=== PATIENT | male | born 1985 | race Caucasian/White ===

== ENCOUNTER → 2016-07-07 | Outpatient (CLI) | payer OTHER ==
[~2016-07-07] MED LIST: ACET50TAOT PO; IBUP600T26 PO; LIDO1OIN2 TOP; MELO15TA4 PO; NEUR300C PO; TIZA2CAP3 PO
--- NOTE | 2016-07-16 00:13 | ECWPNPC ---
PATIENT NAME: KARLY RODRIGUEZ : 1985 GENDER: MALE VISIT DATE: 07/07/2016 DISCHARGE DATE: 07/07/16 1120 VISIT LOCKED DATE TIME: PHYSICIAN: ANNE LAIRD PHYSICIAN PAGER NO: [phone] RESOURCE: ANNE LAIRD REASON FOR APPOINTMENT 1. LEFT LEG HISTORY OF PRESENT ILLNESS HISTORY OF PRESENT ILLNESS: PAIN THE PATIENT DESCRIBES THE PAIN... FALL RISK SCREENING: SCREENING :NO FALLS IN THE PAST YEAR TODAY'S VISIT: NOTES: HAS INTERMITTANT SHARP SHOOTING PAIN IN LEFT HIP WHILE WALKING/ TWISTING WHICH IS SO SEVERE IT CAN STOP HIM IN HIS TRACKS. CAN GO COMPLETELY AWAY AND THEN IT WILL RETURN. LEFT LEG CAN GO OUT AND HAS HAD A NEAR FALL. AFTER THIS EVENT HAS EXTREME SORE OVER THE HIP BONE. LEFT ANKLE IS GENERALLY BETTER -DOES WEAR ANKLE BRACE. NOTES HIP PAIN RADIATES INTO LEFT GROIN. LIMPS AT THE END OF THE DAY. 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 NEW PATIENT PAIN DIARY TODAY'S VISITNOTES FROM 0-10, WHAT LEVEL IS YOUR PAIN TODAY?0 PAIN CLINIC PFS, CLERGY, PUBLIC HEALTH REFERRALS PFS REFERRAL NEEDED?NO CLERGY REFERRAL NEEDED?NO PUBLIC HEALTH REFERRAL NEEDED?NO WAS THE PROVIDER NOTIFIED OF ANY PERTINENT INFO?NO PFS REFERRAL NEEDED?NO CLERGY REFERRAL NEEDED?NO PUBLIC HEALTH REFERRAL NEEDED?NO WAS THE PROVIDER NOTIFIED OF ANY PERTINENT INFO?NO REVIEW OF SYSTEMS CONSTITUTIONAL: ANY CHANGE IN YOUR MEDICAL CONDITION? NO . CHILLS NO . FEVER NO . INFECTION: DO YOU HAVE NEW INFECTIONS? NO . DO YOU HAVE HISTORY OF MRSA? NO . MUSCULOSKELETAL: ANY NEW PATTERNS OF PAIN OR NUMBNESS? YES, SHOOTING PAIN IN LEFT HIP UPPER LEFT LEG . GASTROENTEROLOGY: ANY NEW CHANGE IN BOWEL CONTROL? NO . GENITOURINARY: ANY NEW CHANGE IN BLADDER CONTROL? NO . IS THERE A CHANCE YOU COULD BE ? NO . HEMATOLOGY/LYMPH: DO YOU TAKE ANY BLOOD THINNERS? (FOR EXAMPLE- COUMADIN, PLAVIX, AGGRENOX, PLATEL, PRADAXA, OR XARELTO) NO . WHEN WAS YOUR LAST DOSE? DATE: TIME: . NEUROLOGY: HAVE YOU FALLEN IN THE PAST 6 MONTHS? NO . ANY NEW EXTREMITY NUMBNESS OR WEAKNESS? NO . CARDIOLOGY: DO YOU HAVE A PACEMAKER OR DEFIBRILLATOR? NO . RESPIRATORY: HAVE YOU BEEN SICK IN THE PAST WEEK? NO . FEVER NO . FLU LIKE SYMPTOMS? NO . COUGH NO . INTEGUMENTARY: DO YOU HAVE ANY RASHES OR OPEN SORES? NO . ALLERGIC/IMMUNO: ARE YOU ALLERGIC TO SHELLFISH OR IV DYE? NO . ANY NEW ALLERGIES? NO . PSYCHIATRIC: DO YOU HAVE THOUGHTS OF HURTING YOURSELF OR SOMEONE ELSE? NO . ARE YOU ABUSED, NEGLECTED, OR IN AN UNSAFE ENVIRONMENT? NO . ENDOCRINOLOGY: ARE YOU DIABETIC? NO . OTHER: DO YOU NEED ANY PRESCRIPTIONS? YES, TRAMADOL, SOMA . IF YES, PLEASE LIST: ____ . ANY NEW PROBLEMS WITH YOUR MEDICATIONS? NO . WHEN DID YOU LAST EAT? ____ . WHEN DID YOU LAST DRINK? ____ . WHAT DID YOU LAST DRINK? ____ . NAME OF PERSON DRIVING YOU HOME? ____ . DO YOU HAVE ANY OTHER QUESTIONS OR CONCERNS YES, AT TIMES SHOOTING PAIN IN HIP/UPPER LEFT LEG . REVIEWED BY: PROVIDER: ANNE RICH . VITAL SIGNS WT 265 LBS, HT 70 1/2, BMI 37.48 INDEX, BP 151/94 MM HG, HR 88 /MIN, RR 16 /MIN, TEMP 97.1 F, OXYGEN SAT % 96, NA INITIALS TL 1050, REVIEWED BY: CM. EXAMINATION GENERAL EXAMINATION: LUNGS:CLEAR TO AUSCULTATION BILATERALLY. HEART:HEART RATE REGULAR. MUSCULOSKELETAL:PAIN WITH PATRICKS TESTING ON LEFT WITH INTERNAL AND EXTERNAL ROTATION. POINT TENDERNESS OVER MEDIAL AND LATERAL MALLEOLUS LEFT ANKLE. PAIN WITH INTERNAL AND EXTERMAL ROTATION OF THE ANKLE.. JOINTS:LEFT HIP TENDER OVER TROCANTER. TIGHTNESS OVER LEFT ILIOTIBIAL BAND. DIAGNOSTIC TESTS REVIEWEDXRAYS OF LEFT FEMUR, HIP AND ANKLE REVIEWED WITH PATIENT. BONE FRAGMENT NOTED OVER MEDIAL AND TIBIAL MALLEOLUS LEFT ANKLE WITH SOFT TISSUE EDEMA. INTERNAL FIXATION JONA AND SCREW NOTED TO NE INTACT TO LEFT FEMUR. DEGENERATIVE CHAGES SEEN IN LEFT FFEMORAL HEAD AND ACETABULUM. ASSESSMENTS HIP PAIN - M25.559 (PRIMARY) PAIN OF LEFT FEMUR - M89.9 PAIN IN LEFT ANKLE AND JOINTS OF LEFT FOOT - M25.572 TREATMENT HIP PAIN REFILL TRAMADOL HCL TABLET, 50 MG, DIRECTED, ORALLY, TAKE ONE TAB Q 4-6 HRS PRN PAIN MDD=4, 30 DAY(S), 120, REFILLS 1 REFILL SOMA TABLET, 350 MG, 1 TABLET, ORALLY, ONE AT BEDTIME, 30 DAY(S), 30, REFILLS 1 NOTES: CONTINUE CURRENT MEDS . WE WILL CHECK ON THE REFERRAL TO DR HERNANDEZ. PROCEDURE CODES FA211 ESTABILISHED PATIENT [facility] CHARGE DISPOSITION & COMMUNICATION FOLLOW UP 2-3 MONTHS ELECTRONICALLY SIGNED BY KOTA DELONG ON 07/15/2016 AT 09:14 AM EST DISCLAIMER : THIS IS A VISIT SUMMARY EXTRACTED FROM THE [employer] CHART. IT IS NOT A COPY OF THE [employer] PROGRESS NOTE. TOMMY
== END ==
LOC: M PAIN 10:40
PROVIDERS: ATTEND Nurse Practitioner Family
DX: Z09 Encounter for follow-up examination after completed treatment for conditions other than malignant neoplasm (principal); G89.29 Other chronic pain; M25.559 Pain in unspecified hip; M89.9 Disorder of bone, unspecified; M25.572 Pain in left ankle and joints of left foot; Z79.1 Long term (current) use of non-steroidal anti-inflammatories (NSAID); Z79.891 Long term (current) use of opiate analgesic; Z79.899 Other long term (current) drug therapy

== ENCOUNTER → 2016-09-17 | Outpatient (CLI) | payer OTHER ==
--- NOTE | 2016-10-08 00:57 | ECWPNPC ---
PATIENT NAME: KARLY RODRIGUEZ : 1985 GENDER: MALE VISIT DATE: 09/17/2016 DISCHARGE DATE: 09/17/16 1454 VISIT LOCKED DATE TIME: PHYSICIAN: ANNE LAIRD PHYSICIAN PAGER NO: [phone] RESOURCE: ANNE LAIRD REASON FOR APPOINTMENT 1. LEFT LEG HISTORY OF PRESENT ILLNESS HISTORY OF PRESENT ILLNESS: PAIN THE PATIENT DESCRIBES THE PAIN... FALL RISK SCREENING: SCREENING :NO FALLS IN THE PAST YEAR TODAY'S VISIT: NOTES: RATES PAIN TODAY 6/10. DESCRIBES PAIN ACHING. PAIN IS CENTERED IN LEFT LOWER LEG. NOTES ANKLE BRACE IS HELPFUL. HAS TRIED LIDOCANE BUT CREAM RUBS OFF TOO SOON.. CURRENT MEDICATIONS TAKING IBUPROFEN 800 MG TABLET 1 TABLET ORALLY TWO TIMES A DAY TAKING TRAMADOL HCL 50 MG TABLET DIRECTED ORALLY TAKE ONE TAB Q 4-6 HRS PRN PAIN MDD=4 TAKING SOMA 350 MG TABLET 1 TABLET ORALLY ONE AT BEDTIME MEDICATION LIST REVIEWED AND RECONCILED WITH THE PATIENT PAST MEDICAL HISTORY BACK PAIN ALLERGIES N.K.D.A. REVIEW OF SYSTEMS CONSTITUTIONAL: ANY CHANGE IN YOUR MEDICAL CONDITION? NO . CHILLS NO . FEVER NO . INFECTION: DO YOU HAVE NEW INFECTIONS? NO . DO YOU HAVE HISTORY OF MRSA? NO . MUSCULOSKELETAL: ANY NEW PATTERNS OF PAIN OR NUMBNESS? NO . GASTROENTEROLOGY: ANY NEW CHANGE IN BOWEL CONTROL? NO . GENITOURINARY: ANY NEW CHANGE IN BLADDER CONTROL? NO . IS THERE A CHANCE YOU COULD BE ? NO . HEMATOLOGY/LYMPH: DO YOU TAKE ANY BLOOD THINNERS? (FOR EXAMPLE- COUMADIN, PLAVIX, AGGRENOX, PLATEL, PRADAXA, OR XARELTO) NO . WHEN WAS YOUR LAST DOSE? DATE: TIME: . NEUROLOGY: HAVE YOU FALLEN IN THE PAST 6 MONTHS? NO . ANY NEW EXTREMITY NUMBNESS OR WEAKNESS? NO . CARDIOLOGY: DO YOU HAVE A PACEMAKER OR DEFIBRILLATOR? NO . RESPIRATORY: HAVE YOU BEEN SICK IN THE PAST WEEK? NO . FEVER NO . FLU LIKE SYMPTOMS? NO . COUGH NO . INTEGUMENTARY: DO YOU HAVE ANY RASHES OR OPEN SORES? NO . ALLERGIC/IMMUNO: ARE YOU ALLERGIC TO SHELLFISH OR IV DYE? NO . ANY NEW ALLERGIES? NO . PSYCHIATRIC: DO YOU HAVE THOUGHTS OF HURTING YOURSELF OR SOMEONE ELSE? NO . ARE YOU ABUSED, NEGLECTED, OR IN AN UNSAFE ENVIRONMENT? NO . ENDOCRINOLOGY: ARE YOU DIABETIC? NO . OTHER: DO YOU NEED ANY PRESCRIPTIONS? NO . IF YES, PLEASE LIST: ____ . ANY NEW PROBLEMS WITH YOUR MEDICATIONS? NO . WHEN DID YOU LAST EAT? ____ . WHEN DID YOU LAST DRINK? ____ . WHAT DID YOU LAST DRINK? ____ . NAME OF PERSON DRIVING YOU HOME? ____ . DO YOU HAVE ANY OTHER QUESTIONS OR CONCERNS NO . PSYCHOLOGY: DEPRESSION IS EMBARRASSED ABOUT WEIGHT GAIN . REVIEWED BY: PROVIDER: ANNE RICH . VITAL SIGNS WT 265 LBS, HT 70 1/2, BMI 37.48 INDEX, BP 148/87 MM HG, HR 96 /MIN, RR 16 /MIN, TEMP 97.2 F, OXYGEN SAT % 94%, NA INITIALS SC 14:26, REVIEWED BY: TYRELL. EXAMINATION GENERAL EXAMINATION: LUNGS:CLEAR TO AUSCULTATION BILATERALLY. HEART:HEART RATE REGULAR. MUSCULOSKELETAL:PAIN WITH PATRICKS TESTING ON LEFT WITH INTERNAL AND EXTERNAL ROTATION. POINT TENDERNESS OVER MEDIAL AND LATERAL MALLEOLUS LEFT ANKLE. PAIN WITH INTERNAL AND EXTERMAL ROTATION OF THE ANKLE. GAIT ANTALGIC. JOINTS:LEFT HIP TENDER OVER TROCANTER. TIGHTNESS OVER LEFT ILIOTIBIAL BAND. ASSESSMENTS HIP PAIN - M25.559 (PRIMARY) PAIN OF LEFT FEMUR - M89.9 PAIN IN LEFT ANKLE AND JOINTS OF LEFT FOOT - M25.572 TREATMENT HIP PAIN START LIDODERM PATCH, 5 %, 1 PATCH TO SKIN REMOVE AFTER 12 HOURS, EXTERNALLY, ONCE A DAY TO LEFT ANKLE ON 12 HOURS, OFF 12 HOURS, 30 DAY(S), 30, REFILLS 3 PROCEDURE CODES FA211 ESTABILISHED PATIENT [facility] CHARGE DISPOSITION & COMMUNICATION FOLLOW UP 2 MONTHS (REASON: DO AMADOR TO SEE MEDICAL RECORDS FROM [facility] TO [facility]) ELECTRONICALLY SIGNED BY KOTA DELONG ON 10/07/2016 AT 06:07 PM EDT DISCLAIMER : THIS IS A VISIT SUMMARY EXTRACTED FROM THE [employer] CHART. IT IS NOT A COPY OF THE [employer] PROGRESS NOTE. MTDPramod
== END ==
LOC: M PAIN 14:20
PROVIDERS: ATTEND Nurse Practitioner Family
DX: G89.29 Other chronic pain (principal); M25.559 Pain in unspecified hip; M89.9 Disorder of bone, unspecified; M25.572 Pain in left ankle and joints of left foot; Z79.899 Other long term (current) drug therapy

== ENCOUNTER → 2016-11-17 | Outpatient (CLI) | payer OTHER ==
[~2016-11-17] MED LIST changes: +IBUP-1022 PO; -IBUP600T26 PO
--- NOTE | 2016-12-07 01:34 | ECWPNPC ---
PATIENT NAME: KARLY RODRIGUEZ : 1985 GENDER: MALE VISIT DATE: 11/17/2016 DISCHARGE DATE: 11/17/16 1552 VISIT LOCKED DATE TIME: PHYSICIAN: ANNE LAIRD PHYSICIAN PAGER NO: [phone] RESOURCE: ANNE LAIRD REASON FOR APPOINTMENT 1. DO AMADOR TO SEE MEDICAL RECORDS FROM [facility] TO [facility] HISTORY OF PRESENT ILLNESS HISTORY OF PRESENT ILLNESS: PAIN THE PATIENT DESCRIBES THE PAIN... FALL RISK SCREENING: SCREENING :NO FALLS IN THE PAST YEAR TODAY'S VISIT: NOTES: RATES PAIN TODAY 4/10. DESCRIBES THE PAIN ACHING. PAIN REMAINS CENTERED IN RIGHT ANKLE/LEG WITH EXTENSION TO THE HIP. REPORTS HE IS WORKING MORE AND THIS HAS INCREASED PAIN LEVEL.. CURRENT MEDICATIONS TAKING IBUPROFEN 800 MG TABLET 1 TABLET ORALLY TWO TIMES A DAY TAKING LIDODERM 5 % PATCH 1 PATCH TO SKIN REMOVE AFTER 12 HOURS EXTERNALLY ONCE A DAY TO LEFT ANKLE ON 12 HOURS, OFF 12 HOURS TAKING TRAMADOL HCL 50 MG TABLET DIRECTED ORALLY TAKE ONE TAB Q 4-6 HRS PRN PAIN MDD=4 TAKING SOMA 350 MG TABLET 1 TABLET ORALLY ONE AT BEDTIME MEDICATION LIST REVIEWED AND RECONCILED WITH THE PATIENT PAST MEDICAL HISTORY BACK PAIN ALLERGIES N.K.D.A. SURGICAL HISTORY LT FEMUR JONA PLACEMENT 2010 HOSPITALIZATION/MAJOR DIAGNOSTIC PROCEDURE PULMONARY EMBOLI 2010 REVIEW OF SYSTEMS REVIEWED BY: PROVIDER: ANNE LAIRD CEO ZIFF DAVIS . CONSTITUTIONAL: ANY CHANGE IN YOUR MEDICAL CONDITION? NO . CHILLS NO . FEVER NO . INFECTION: DO YOU HAVE NEW INFECTIONS? NO . DO YOU HAVE HISTORY OF MRSA? NO . MUSCULOSKELETAL: ANY NEW PATTERNS OF PAIN OR NUMBNESS? YES . GASTROENTEROLOGY: ANY NEW CHANGE IN BOWEL CONTROL? NO . GENITOURINARY: ANY NEW CHANGE IN BLADDER CONTROL? NO . IS THERE A CHANCE YOU COULD BE ? NO . HEMATOLOGY/LYMPH: DO YOU TAKE ANY BLOOD THINNERS? (FOR EXAMPLE- COUMADIN, PLAVIX, AGGRENOX, PLATEL, PRADAXA, OR XARELTO) NO . WHEN WAS YOUR LAST DOSE? DATE: TIME: . NEUROLOGY: HAVE YOU FALLEN IN THE PAST 6 MONTHS? YES . ANY NEW EXTREMITY NUMBNESS OR WEAKNESS? NO . CARDIOLOGY: DO YOU HAVE A PACEMAKER OR DEFIBRILLATOR? NO . RESPIRATORY: HAVE YOU BEEN SICK IN THE PAST WEEK? NO . FEVER NO . FLU LIKE SYMPTOMS? NO . COUGH NO . INTEGUMENTARY: DO YOU HAVE ANY RASHES OR OPEN SORES? NO . ALLERGIC/IMMUNO: ARE YOU ALLERGIC TO SHELLFISH OR IV DYE? NO . ANY NEW ALLERGIES? NO . PSYCHIATRIC: DO YOU HAVE THOUGHTS OF HURTING YOURSELF OR SOMEONE ELSE? NO . ARE YOU ABUSED, NEGLECTED, OR IN AN UNSAFE ENVIRONMENT? NO . ENDOCRINOLOGY: ARE YOU DIABETIC? NO . OTHER: DO YOU NEED ANY PRESCRIPTIONS? NO . IF YES, PLEASE LIST: ____ . ANY NEW PROBLEMS WITH YOUR MEDICATIONS? NO . WHEN DID YOU LAST EAT? ____ . WHEN DID YOU LAST DRINK? ____ . WHAT DID YOU LAST DRINK? ____ . NAME OF PERSON DRIVING YOU HOME? ____ . DO YOU HAVE ANY OTHER QUESTIONS OR CONCERNS NO . VITAL SIGNS WT 288 LBS, HT 70 1/2, BMI 40.74 INDEX, BP 167/97 MM HG, HR 93 /MIN, RR 16 /MIN, TEMP 97.4 F, OXYGEN SAT % 95%, NA INITIALS CM. EXAMINATION GENERAL EXAMINATION: LUNGS:CLEAR TO AUSCULTATION BILATERALLY. HEART:HEART RATE REGULAR. MUSCULOSKELETAL:PAIN WITH PATRICKS TESTING ON LEFT WITH INTERNAL AND EXTERNAL ROTATION. POINT TENDERNESS OVER MEDIAL AND LATERAL MALLEOLUS LEFT ANKLE. PAIN WITH INTERNAL AND EXTERMAL ROTATION OF THE ANKLE. GAIT ANTALGIC. JOINTS:LEFT HIP TENDER OVER TROCANTER. TIGHTNESS OVER LEFT ILIOTIBIAL BAND. ASSESSMENTS HIP PAIN - M25.559 (PRIMARY) PAIN OF LEFT FEMUR - M89.9 PAIN IN LEFT ANKLE AND JOINTS OF LEFT FOOT - M25.572 TREATMENT HIP PAIN REFILL TRAMADOL HCL TABLET, 50 MG, DIRECTED, ORALLY, TAKE 1-2 TABS Q 6 HRS PRN PAIN MDD=6, 30 DAY(S), 180, REFILLS 1 NOTES: CONTINUE LIDO DERM PATCHES, EXERCISES AND STRETCHES. CONTINUE TO PURSUE DATE AT [facility]. PROCEDURE CODES FA211 ESTABILISHED PATIENT LOCATED WITHIN [facility] CHARGE DISPOSITION & COMMUNICATION FOLLOW UP 2 MONTHS (REASON: R LEG/ANKLE) ELECTRONICALLY SIGNED BY KOTA DELONG ON 12/06/2016 AT 06:04 PM EDT DISCLAIMER : THIS IS A VISIT SUMMARY EXTRACTED FROM THE [employer] CHART. IT IS NOT A COPY OF THE [employer] PROGRESS NOTE. MTDD
== END ==
LOC: M PAIN 15:00
PROVIDERS: ATTEND Nurse Practitioner Family
DX: M25.559 Pain in unspecified hip (principal); M89.9 Disorder of bone, unspecified; M25.572 Pain in left ankle and joints of left foot; Z79.891 Long term (current) use of opiate analgesic; Z79.899 Other long term (current) drug therapy

== ENCOUNTER → 2017-03-18 | Outpatient (CLI) | payer OTHER ==
--- NOTE | 2017-04-18 01:01 | ECWPNPC ---
PATIENT NAME: KARLY RODRIGUEZ : 1985 GENDER: MALE VISIT DATE: 03/18/2017 DISCHARGE DATE: 03/18/17 1542 VISIT LOCKED DATE TIME: PHYSICIAN: ANNE LAIRD PHYSICIAN PAGER NO: [phone] RESOURCE: ANNE LAIRD REASON FOR APPOINTMENT 1. L.LEG/ANKLE HISTORY OF PRESENT ILLNESS HISTORY OF PRESENT ILLNESS: PAIN THE PATIENT DESCRIBES THE PAIN... FALL RISK SCREENING: SCREENING :NO FALLS IN THE PAST YEAR TODAY'S VISIT: NOTES: RATES PAIN TODAY 4/10. DESCRIBES PAIN ACHING. PAIN IS CENTERED IN LEFT HIP AND LEG. HAS BEEN SEEN AT [facility]. [facility] AND ADDITIONAL FILMS WERE DONE. SOME DAYS CHAYA AFTER ACTIVITY CAN HAVE INCREASED PAIN IN BACK OR KNEE.. CURRENT MEDICATIONS TAKING IBUPROFEN 800 MG TABLET 1 TABLET ORALLY TWO TIMES A DAY TAKING SOMA 350 MG TABLET 1 TABLET ORALLY ONE AT BEDTIME TAKING TRAMADOL HCL 50 MG TABLET DIRECTED ORALLY TAKE 1-2 TABS Q 6 HRS PRN PAIN MDD=6 NOT-TAKING LIDODERM 5 % PATCH 1 PATCH TO SKIN REMOVE AFTER 12 HOURS EXTERNALLY ONCE A DAY TO LEFT ANKLE ON 12 HOURS, OFF 12 HOURS, NOTES: DOESN'T HAVE ANY MEDICATION LIST REVIEWED AND RECONCILED WITH THE PATIENT PAST MEDICAL HISTORY BACK PAIN ALLERGIES N.K.D.A. 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 NEW PATIENT PAIN DIARY TODAY'S VISITNOTES FROM 0-10, WHAT LEVEL IS YOUR PAIN TODAY?0 PAIN CLINIC PFS, CLERGY, PUBLIC HEALTH REFERRALS PFS REFERRAL NEEDED?NO CLERGY REFERRAL NEEDED?NO PUBLIC HEALTH REFERRAL NEEDED?NO WAS THE PROVIDER NOTIFIED OF ANY PERTINENT INFO?NO HAS THE PATIENT BEEN EDUCATED REGARDING HIS/HER PLAN OF CARE?YES HAS THE PATIENT BEEN EDUCATED REGARDING PAIN, THE RISK FOR PAIN, THE IMPORTANCE OF EFFECTIVE PAIN MANAGEMENT, AND THE PAIN ASSESSMENT PROCESS?YES REVIEW OF SYSTEMS REVIEWED BY: PROVIDER: ANNE LAIRD FOREPART LASTER . CONSTITUTIONAL: ANY CHANGE IN YOUR MEDICAL CONDITION? NO . CHILLS NO . FEVER NO . INFECTION: DO YOU HAVE NEW INFECTIONS? NO . DO YOU HAVE HISTORY OF MRSA? NO . MUSCULOSKELETAL: ANY NEW PATTERNS OF PAIN OR NUMBNESS? NO . GASTROENTEROLOGY: ANY NEW CHANGE IN BOWEL CONTROL? NO . GENITOURINARY: ANY NEW CHANGE IN BLADDER CONTROL? NO . IS THERE A CHANCE YOU COULD BE ? NO . HEMATOLOGY/LYMPH: DO YOU TAKE ANY BLOOD THINNERS? (FOR EXAMPLE- COUMADIN, PLAVIX, AGGRENOX, PLATEL, PRADAXA, OR XARELTO) NO . WHEN WAS YOUR LAST DOSE? DATE: TIME: . NEUROLOGY: HAVE YOU FALLEN IN THE PAST 6 MONTHS? NO . ANY NEW EXTREMITY NUMBNESS OR WEAKNESS? NO . CARDIOLOGY: DO YOU HAVE A PACEMAKER OR DEFIBRILLATOR? NO . RESPIRATORY: HAVE YOU BEEN SICK IN THE PAST WEEK? NO . FEVER NO . FLU LIKE SYMPTOMS? NO . COUGH NO . INTEGUMENTARY: DO YOU HAVE ANY RASHES OR OPEN SORES? NO . ALLERGIC/IMMUNO: ARE YOU ALLERGIC TO SHELLFISH OR IV DYE? NO . ANY NEW ALLERGIES? NO . PSYCHIATRIC: DO YOU HAVE THOUGHTS OF HURTING YOURSELF OR SOMEONE ELSE? NO . ARE YOU ABUSED, NEGLECTED, OR IN AN UNSAFE ENVIRONMENT? NO . ENDOCRINOLOGY: ARE YOU DIABETIC? NO . OTHER: DO YOU NEED ANY PRESCRIPTIONS? NO . IF YES, PLEASE LIST: ____ . ANY NEW PROBLEMS WITH YOUR MEDICATIONS? NO . WHEN DID YOU LAST EAT? ____ . WHEN DID YOU LAST DRINK? ____ . WHAT DID YOU LAST DRINK? ____ . NAME OF PERSON DRIVING YOU HOME? ____ . DO YOU HAVE ANY OTHER QUESTIONS OR CONCERNS NO . VITAL SIGNS WT 260 LBS, HT 70 1/2, BMI 36.77 INDEX, BP 143/93 MM HG, HR 76 /MIN, RR 18 /MIN, TEMP 97.2 F, OXYGEN SAT % 98%, NA INITIALS SC 15:14, REVIEWED BY: LILIANA. EXAMINATION GENERAL EXAMINATION: LUNGS:CLEAR TO AUSCULTATION BILATERALLY. HEART:HEART RATE REGULAR. MUSCULOSKELETAL: TENDER WITH PALPATION OVER LEFT ROCANTER. POINT TENDERNESS OVER MEDIAL AND LATERAL MALLEOLUS LEFT ANKLE. PAIN WITH INTERNAL AND EXTERMAL ROTATION OF THE ANKLE. GAIT ANTALGIC. JOINTS:LEFT HIP TENDER OVER TROCANTER. TIGHTNESS OVER LEFT ILIOTIBIAL BAND. ASSESSMENTS HIP PAIN - M25.559 (PRIMARY) PAIN OF LEFT FEMUR - M89.9 PAIN IN LEFT ANKLE AND JOINTS OF LEFT FOOT - M25.572 TREATMENT HIP PAIN REFILL LIDODERM PATCH, 5 %, 1 PATCH TO SKIN REMOVE AFTER 12 HOURS, EXTERNALLY, ONCE A DAY TO LEFT ANKLE ON 12 HOURS, OFF 12 HOURS, 30 DAY(S), 30, REFILLS 3 NOTES: WILL ORDER REFERRAL FOR LEFT ANKLE BRACE AND EVAL FOR SHOE LIFT IF NECESSARY [facility] OR ORTHOTICS ON [facility] PROCEDURE CODES FA211 ESTABILISHED PATIENT [facility] CHARGE DISPOSITION & COMMUNICATION FOLLOW UP 2 MONTHS (REASON: AMADOR - NEED OFFICE NOTES AND XRAYS RESULTS DONE IN FEBRUARY. ) ELECTRONICALLY SIGNED BY KOTA DELONG ON 04/17/2017 AT 08:17 PM EST DISCLAIMER : THIS IS A VISIT SUMMARY EXTRACTED FROM THE [employer] CHART. IT IS NOT A COPY OF THE [employer] PROGRESS NOTE. TOMMY
== END ==
LOC: M PAIN 14:30
PROVIDERS: ATTEND Nurse Practitioner Family
DX: M25.559 Pain in unspecified hip (principal); M89.9 Disorder of bone, unspecified; M25.572 Pain in left ankle and joints of left foot; Z79.891 Long term (current) use of opiate analgesic; Z79.899 Other long term (current) drug therapy

== ENCOUNTER → 2017-06-08 | Outpatient (CLI) | payer OTHER | LOC: M PAIN 13:45 | DX: M25.559 Pain in unspecified hip (principal); M89.9 Disorder of bone, unspecified; M25.572 Pain in left ankle and joints of left foot; Z79.891 Long term (current) use of opiate analgesic; Z79.899 Other long term (current) drug therapy | CPT/HCPCS: G0463 ==

== ENCOUNTER → 2017-12-26 | Outpatient (CLI) | payer OTHER | LOC: M PAIN 15:00 | DX: M25.559 Pain in unspecified hip (principal); M89.9 Disorder of bone, unspecified; M25.572 Pain in left ankle and joints of left foot; Z79.891 Long term (current) use of opiate analgesic; Z79.1 Long term (current) use of non-steroidal anti-inflammatories (NSAID) | CPT/HCPCS: G0463 ==

== ENCOUNTER → 2018-03-30 | Outpatient (CLI) | payer OTHER | LOC: M PAIN 10:45 | DX: M25.559 Pain in unspecified hip (principal); M79.652 Pain in left thigh; M25.572 Pain in left ankle and joints of left foot; Z79.1 Long term (current) use of non-steroidal anti-inflammatories (NSAID); Z79.891 Long term (current) use of opiate analgesic | CPT/HCPCS: G0463 ==

== ENCOUNTER → 2018-10-02 | Outpatient (CLI) | payer OTHER ==
[~2018-10-02] MED LIST changes: +ACET500T15 PO; -ACET50TAOT PO; +MELO15TA28 PO; -MELO15TA4 PO; +TIZA2CAP PO; -TIZA2CAP3 PO
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
== END ==
LOC: M PAIN 14:30
PROVIDERS: ATTEND Nurse Practitioner Family
DX: M25.572 Pain in left ankle and joints of left foot (principal); G89.29 Other chronic pain; M89.9 Disorder of bone, unspecified; Z86.711 Personal history of pulmonary embolism; Z86.59 Personal history of other mental and behavioral disorders; Z79.891 Long term (current) use of opiate analgesic; Z79.899 Other long term (current) drug therapy

== ENCOUNTER → 2019-01-15 | Outpatient (CLI) | payer OTHER ==
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
== END ==
LOC: M PAIN 10:00
PROVIDERS: ATTEND Family Medicine
DX: M25.572 Pain in left ankle and joints of left foot (principal); M25.559 Pain in unspecified hip; G89.29 Other chronic pain; Z86.711 Personal history of pulmonary embolism; Z86.59 Personal history of other mental and behavioral disorders; E66.01 Morbid (severe) obesity due to excess calories; Z68.41 Body mass index [BMI] 40.0-44.9, adult; Z79.891 Long term (current) use of opiate analgesic; Z79.899 Other long term (current) drug therapy

== ENCOUNTER → 2019-06-01 | Outpatient (CLI) | payer OTHER ==
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
== END ==
LOC: M PAIN 10:45
PROVIDERS: ATTEND Family Medicine
DX: M25.559 Pain in unspecified hip (principal)

== ENCOUNTER → 2019-07-03 | Outpatient (CLI) | payer OTHER ==
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
== END ==
LOC: M PAIN 10:45
PROVIDERS: ATTEND Family Medicine
DX: M25.559 Pain in unspecified hip (principal); G89.29 Other chronic pain; Z86.711 Personal history of pulmonary embolism; Z86.59 Personal history of other mental and behavioral disorders; Z79.891 Long term (current) use of opiate analgesic; Z79.899 Other long term (current) drug therapy

== ENCOUNTER → 2019-09-20 | Outpatient (CLI) | payer OTHER ==
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
== END ==
LOC: M PAIN 10:45
PROVIDERS: ATTEND Family Medicine
DX: M25.559 Pain in unspecified hip (principal); G89.29 Other chronic pain; Z86.711 Personal history of pulmonary embolism; Z86.59 Personal history of other mental and behavioral disorders; Z79.891 Long term (current) use of opiate analgesic; Z79.899 Other long term (current) drug therapy

== ENCOUNTER → 2020-01-15 | Outpatient (CLI) | payer OTHER | LOC: M PAIN 10:24 | PROVIDERS: ATTEND Family Medicine | DX: M25.559 Pain in unspecified hip (principal) ==

== ENCOUNTER → 2020-03-06 | Outpatient (CLI) | payer OTHER ==
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
== END ==
LOC: M PAIN 09:15
PROVIDERS: ATTEND Family Medicine
DX: M25.559 Pain in unspecified hip (principal); G89.29 Other chronic pain; Z86.59 Personal history of other mental and behavioral disorders; Z86.711 Personal history of pulmonary embolism; Z79.891 Long term (current) use of opiate analgesic; Z79.899 Other long term (current) drug therapy

== ENCOUNTER → 2020-04-08 | Outpatient (CLI) | payer OTHER ==
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
== END ==
LOC: M PAIN 09:00
PROVIDERS: ATTEND Family Medicine
DX: M25.559 Pain in unspecified hip (principal); G89.29 Other chronic pain; Z86.711 Personal history of pulmonary embolism; Z86.59 Personal history of other mental and behavioral disorders; E66.01 Morbid (severe) obesity due to excess calories; Z68.41 Body mass index [BMI] 40.0-44.9, adult; Z79.891 Long term (current) use of opiate analgesic; Z79.899 Other long term (current) drug therapy

== ENCOUNTER → 2020-07-22 | Outpatient (CLI) | payer OTHER ==
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
== END ==
LOC: M PAIN 09:15
PROVIDERS: ATTEND Family Medicine
DX: M25.559 Pain in unspecified hip (principal); M25.572 Pain in left ankle and joints of left foot; G89.29 Other chronic pain; Z86.711 Personal history of pulmonary embolism; Z86.59 Personal history of other mental and behavioral disorders; E66.01 Morbid (severe) obesity due to excess calories; Z68.41 Body mass index [BMI] 40.0-44.9, adult; Z79.899 Other long term (current) drug therapy

== ENCOUNTER → 2020-07-30 | Outpatient (REF) | payer OTHER ==
[2020-07-30 17:51] LABS: ALBUMIN 4.1 GM/DL (3.2-5.2); ALT/SGPT 61 U/L (12-78); BILIRUBIN,TOTAL 0.6 MG/DL (0.2-1.0); BLOOD UREA NITROGEN 23 MG/DL (7-18); CALCIUM LEVEL 9.3 MG/DL (8.5-10.1); CARBON DIOXIDE LEVEL 30 MEQ/L (21-32); CHLORIDE LEVEL 105 MEQ/L (98-107); CHOLESTEROL LEVEL 194 MG/DL (<200); CHOLESTEROL RISK RATIO 5.105 (<5); CREATININE FOR GFR 1.01 MG/DL (0.70-1.30); GLOMERULAR FILTRATION RATE > 60.0 (>60); GLUCOSE, FASTING 77 MG/DL (70-100); HDL CHOLESTEROL 38 MG/DL (>40); LDL CHOLESTEROL 116 MG/DL (<100); NON-HDL-C 156 MG/DL; POTASSIUM SERUM 4.9 MEQ/L (3.5-5.1); SODIUM LEVEL 139 MEQ/L (136-145); THYROID STIMULATING HORMONE 0.938 uIU/ML (0.358-3.740); TOTAL PROTEIN 7.3 GM/DL (6.4-8.2); TRIGLYCERIDES LEVEL 201 MG/DL (<150)
== END ==
LOC: M LAB REF 15:59
PROVIDERS: ATTEND Family Medicine Addiction Medicine
DX: I10 Essential (primary) hypertension (principal)

== ENCOUNTER → 2020-08-12 | Outpatient (REF) | payer OTHER ==
[2020-08-12 16:36] LABS: BASO % 0.6 % (0.0-1.0); EOS # 0.2 10^3/uL (0.0-0.5); EOS % 2.2 % (0.0-3.0); HEMATOCRIT 50.6 % (42.0-52.0); HEMOGLOBIN 17.1 g/dl (13.5-17.5); LYMPH # 3.2 10^3/uL (1.5-5.0); LYMPH % 45.3 % (24.0-44.0); MEAN CORPUSCULAR HEMOGLOBIN 29.1 pg (27.0-33.0); MEAN CORPUSCULAR HGB CONC 33.8 g/dl (32.0-36.5); MEAN CORPUSCULAR VOLUME 86.2 fl (80.0-96.0); MONO # 0.6 10^3/uL (0.0-0.8); NEUTROPHILS # 3.1 10^3/uL (1.5-8.5); NEUTROPHILS % 43.5 % (36.0-66.0); PLATELET COUNT, AUTOMATED 282 10^3/uL (150-450); RED BLOOD COUNT 5.87 10^6/uL (4.30-6.10); WHITE BLOOD COUNT 7.2 10^3/uL (4.0-10.0)
[2020-08-12 18:22] LABS: ERYTHROCYTE SEDIMENTATION RATE 2 mm/hr (0-15)
== END ==
LOC: M LAB REF 15:53
PROVIDERS: ATTEND Pediatrics
DX: R19.7 Diarrhea, unspecified (principal)

== ENCOUNTER → 2021-01-15 | Outpatient (CLI) | payer OTHER | LOC: M PAIN 13:30 | PROVIDERS: ATTEND Anesthesiology | DX: M25.559 Pain in unspecified hip (principal); Z79.891 Long term (current) use of opiate analgesic; M89.9 Disorder of bone, unspecified; M25.572 Pain in left ankle and joints of left foot; M54.5 Low back pain; F43.10 Post-traumatic stress disorder, unspecified; Z86.711 Personal history of pulmonary embolism; Z87.81 Personal history of (healed) traumatic fracture; Z79.899 Other long term (current) drug therapy ==

== ENCOUNTER → 2021-02-18 | Outpatient (CLI) | payer OTHER | LOC: M PAIN 13:30 | PROVIDERS: ATTEND Anesthesiology | DX: M54.16 Radiculopathy, lumbar region (principal); M79.605 Pain in left leg; G89.29 Other chronic pain; Z86.711 Personal history of pulmonary embolism; Z86.59 Personal history of other mental and behavioral disorders; E66.01 Morbid (severe) obesity due to excess calories; Z68.41 Body mass index [BMI] 40.0-44.9, adult; Z79.899 Other long term (current) drug therapy ==

== ENCOUNTER → 2021-04-02 | Outpatient (CLI) | payer OTHER ==
--- NOTE | 2021-04-02 17:16 | REP ---
INDICATION: THORACIC PAIN / LUMBAR RADICULOPATHY. COMPARISON: None. TECHNIQUE: T1 and T2 weighted axial and sagittal images were obtained. FINDINGS: No abnormal signal is seen in the visualized thoracolumbar spine. Mild disc degeneration is present at L1/2. L1/2: The foramina are adequate bilaterally. A large anterior disc protrusion is present of approximately 7 mm and there is a posterior disc protrusion centrally of approximately 3 mm. The posterior protrusion does not impact the exiting nerve rootlets. No central canal stenosis is present. L2/3: The foramina are adequate bilaterally. No significant disc bulge, herniation or central canal stenosis is noted. L3/4: The foramina are adequate bilaterally. No significant disc bulge, herniation or central canal stenosis is noted. L4/5: The foramina are adequate bilaterally. No significant disc bulge, herniation or central canal stenosis is present. L5/S1: The foramina are adequate bilaterally. No significant disc bulge, herniation or central canal stenosis is evident. IMPRESSION: Disc degeneration at L1/2 with large anterior disc protrusion and small posterior disc protrusion at that level. The posterior central disc protrusion does not appear to impact the exiting nerve rootlets. <Electronically signed by Ba Loving > 04/02/21 [id number]
--- NOTE | 2021-04-03 09:13 | REPVR ---
PROCEDURE INFORMATION: Exam: MR Thoracic Spine Without Contrast Exam date and time: 04/02/2021 10:36 AM Age: 35 years old Clinical indication: Pain in thoracic intervertebral disc disorder; Additional info: Thoracic pain / lumbar radiculopathy TECHNIQUE: Imaging protocol: Multiplanar magnetic resonance images of the thoracic spine without contrast. COMPARISON: No relevant prior studies available. FINDINGS: Vertebrae: There is no acute fracture or listhesis. Marrow signal is within normal limits. Spinal cord: Normal signal. No cord compression. Discs/Spinal canal/Neural foramina: At T3/4, disc bulge with tiny central protrusion indents the ventral thecal sac. The spinal canal and neural foramina are patent. At T4/5, diffuse disc bulging with a tiny right paracentral protrusion indents the ventral thecal sac. The spinal canal and neural foramina are patent. At T6/7, there is shallow disc bulging and facet hypertrophy. The spinal canal and neural foramina are patent. Soft tissues: Unremarkable. IMPRESSION: Scattered multilevel degenerative disc disease without canal or neural foraminal compromise. Electronically signed by: Kristine Carrillo On 04/03/2021 09:13:28 AM
== END ==
LOC: M PLAIMG 09:26
PROVIDERS: ATTEND Anesthesiology
DX: M54.16 Radiculopathy, lumbar region (principal); M51.36 Other intervertebral disc degeneration, lumbar region; M51.26 Other intervertebral disc displacement, lumbar region; M51.34 Other intervertebral disc degeneration, thoracic region

== ENCOUNTER → 2021-04-27 | Outpatient (CLI) | payer OTHER | LOC: M PAIN 11:00 | PROVIDERS: ATTEND Nurse Practitioner Family | DX: M54.16 Radiculopathy, lumbar region (principal); M79.605 Pain in left leg; G89.29 Other chronic pain; Z86.711 Personal history of pulmonary embolism; Z86.59 Personal history of other mental and behavioral disorders; E66.01 Morbid (severe) obesity due to excess calories; Z68.41 Body mass index [BMI] 40.0-44.9, adult; Z79.899 Other long term (current) drug therapy ==

== ENCOUNTER → 2021-10-20 | Outpatient (CLI) | payer OTHER | LOC: M PAIN 09:30 | PROVIDERS: ATTEND Nurse Practitioner Family | DX: M54.16 Radiculopathy, lumbar region (principal); G89.29 Other chronic pain; Z86.711 Personal history of pulmonary embolism; Z86.59 Personal history of other mental and behavioral disorders; E66.01 Morbid (severe) obesity due to excess calories; Z68.41 Body mass index [BMI] 40.0-44.9, adult; Z79.899 Other long term (current) drug therapy ==

== ENCOUNTER → 2022-03-02 | Outpatient (CLI) | payer OTHER | LOC: M PAIN 11:45 | PROVIDERS: ATTEND Nurse Practitioner Family | DX: M54.16 Radiculopathy, lumbar region (principal); G89.29 Other chronic pain; Z86.711 Personal history of pulmonary embolism; Z86.59 Personal history of other mental and behavioral disorders; E66.01 Morbid (severe) obesity due to excess calories; Z68.41 Body mass index [BMI] 40.0-44.9, adult; Z79.899 Other long term (current) drug therapy ==

== ENCOUNTER → 2022-04-02 | Outpatient (CLI) | payer OTHER | LOC: M PAIN 13:45 | PROVIDERS: ATTEND Nurse Practitioner Family | DX: M54.16 Radiculopathy, lumbar region (principal); M89.9 Disorder of bone, unspecified; Z86.711 Personal history of pulmonary embolism; Z87.81 Personal history of (healed) traumatic fracture; Z87.442 Personal history of urinary calculi; F43.10 Post-traumatic stress disorder, unspecified; Z79.891 Long term (current) use of opiate analgesic; Z79.899 Other long term (current) drug therapy ==

== ENCOUNTER → 2022-05-11 | Outpatient (CLI) | payer OTHER | LOC: M PAIN 15:45 | PROVIDERS: ATTEND Anesthesiology | DX: M51.16 Intervertebral disc disorders with radiculopathy, lumbar region (principal); G89.29 Other chronic pain; Z86.59 Personal history of other mental and behavioral disorders; Z86.711 Personal history of pulmonary embolism; E66.01 Morbid (severe) obesity due to excess calories; Z68.41 Body mass index [BMI] 40.0-44.9, adult; Z79.899 Other long term (current) drug therapy ==

== ENCOUNTER → 2022-06-07 | Outpatient (CLI) | payer OTHER | LOC: M PAIN 14:00 | PROVIDERS: ATTEND Nurse Practitioner Family | DX: M51.16 Intervertebral disc disorders with radiculopathy, lumbar region (principal); G89.29 Other chronic pain; Z86.711 Personal history of pulmonary embolism; Z86.59 Personal history of other mental and behavioral disorders; E66.01 Morbid (severe) obesity due to excess calories; Z68.41 Body mass index [BMI] 40.0-44.9, adult; Z79.899 Other long term (current) drug therapy ==

== ENCOUNTER → 2022-06-09 | Outpatient (REF) | payer OTHER | LOC: M SMT 12:42 | PROVIDERS: ATTEND Urology | DX: Z30.2 Encounter for sterilization (principal) ==

== ENCOUNTER → 2022-06-24 | Outpatient (CLI) | payer OTHER | LOC: M LABSMTC 09:24 | PROVIDERS: ATTEND Anesthesiology | DX: Z01.818 Encounter for other preprocedural examination (principal) ==

== ENCOUNTER → 2022-06-29 | Outpatient (CLI) | payer OTHER | LOC: M PAIN 10:00 | PROVIDERS: ATTEND Anesthesiology | DX: M54.16 Radiculopathy, lumbar region (principal); G89.29 Other chronic pain; Z86.711 Personal history of pulmonary embolism; Z86.59 Personal history of other mental and behavioral disorders; E66.01 Morbid (severe) obesity due to excess calories; Z68.41 Body mass index [BMI] 40.0-44.9, adult; Z79.899 Other long term (current) drug therapy ==

== ENCOUNTER → 2022-07-20 | Outpatient (CLI) | payer OTHER | LOC: M TMPAIN 09:00 → M PAIN 09:00 | PROVIDERS: ATTEND Anesthesiology | DX: M51.16 Intervertebral disc disorders with radiculopathy, lumbar region (principal); G89.29 Other chronic pain; Z86.59 Personal history of other mental and behavioral disorders; Z86.711 Personal history of pulmonary embolism; Z79.899 Other long term (current) drug therapy ==